=== PATIENT | male | born 1935 | race Caucasian/White ===

== ENCOUNTER 2019-04-30 11:22 | Emergency (ER) | payer OTHER ==
[~2019-04-30] VITALS: Ht 177.8 cm; Wt 83.9 kg
[2019-04-30] MEDS ORDERED: ZOCOR40 MG (11:53)
[2019-04-30] MEDS ORDERED: LISINOPRIL20 MG (11:54)
[2019-04-30] MEDS ORDERED: FINASTERIDE5 MG (11:54)
[2019-04-30] MEDS ORDERED: DOXAZOSIN MESYLA8 MG (11:55)
[2019-04-30] MEDS ORDERED: TAMS0.4C (11:55)
[2019-04-30] MEDS ORDERED: HYDROCHLOROTH12.5 M1 (11:56)
== END 2019-04-30 21:35 | disposition home or self-care (01) ==
LOC: ER 11:22
DX: R53.1 Weakness (principal); E86.0 Dehydration; J06.9 Acute upper respiratory infection, unspecified